=== PATIENT | male | born 1975 | race Two or more races ===

== ENCOUNTER 2023-01-20 19:57 | Emergency (ER) | payer OTHER ==
[~2023-01-20] VITALS: Ht 180.3 cm; Wt 74.8 kg
== END 2023-01-20 23:47 | disposition home or self-care (01) ==
LOC: ER 19:57
DX: S00.83XA Contusion of other part of head, initial encounter (principal); S13.9XXA Sprain of joints and ligaments of unspecified parts of neck, initial encounter; W18.39XA Other fall on same level, initial encounter; Y93.89 Activity, other specified; Y92.89 Other specified places as the place of occurrence of the external cause; Y99.9 Unspecified external cause status